=== PATIENT | female | born 1990 | race Caucasian/White ===

== ENCOUNTER → 2020-03-13 | Outpatient (CLI) | payer OTHER ==
[~2020-03-13] MED LIST: ACEBUTCAFT PO; ALBU90OI INH; ANTOXYBENA LEFTEAR; ANTOXYBENA RIGHTEAR; AZIT250 PO; BIRTH CONTROL PILL; ERYT500 PO; Flonase 0.05% N16 GM; IBUP600 PO; IBUP800 PO; MEDR150I IM; NAPR500 PO; NEOPOLHYDS LEFTEAR; ONDA4 PO; PSEU120ER PO; RXCLIN PO
[2020-03-13 20:00] LABS: Hematocrit 38.7 % (33.0-51.0); Hemoglobin 13.1 g/dL (11.5-16.0)
== END ==
LOC: LAB 19:41 → LAB SHORT 19:41
PROVIDERS: Registered Nurse Community Health
DX: Z34.91 Encounter for supervision of normal pregnancy, unspecified, first trimester (principal)
CPT/HCPCS: 82950; 85014; 85018

== ENCOUNTER → 2020-05-16 | Outpatient (CLI) | payer OTHER ==
[~2020-05-16] MED LIST changes: +PRENATAL TABLE1 EAC2 PO; +Percocet 5-3251 EACH PO
== END ==
LOC: LAB SHORT 17:35
DX: Z34.90 Encounter for supervision of normal pregnancy, unspecified, unspecified trimester (principal)
CPT/HCPCS: 87081; 87150

== ENCOUNTER 2020-06-14 19:45 | Inpatient (IN) | payer OTHER ==
[~2020-06-14] VITALS: Ht 154.9 cm; Wt 110.0 kg
[~2020-06-14 19:45] MED LIST changes: -PRENATAL TABLE1 EAC2 PO; -Percocet 5-3251 EACH PO
[2020-06-14 20:19] LABS: BASOPHILS ABSOLUTE AUTO 0.03 K/mm3 (0.00-0.23); BASOPHILS PERCENT AUTO 0 % (0-2); EOSINOPHILS ABSOLUTE AUTO 0.07 K/mm3 (0.00-0.68); EOSINOPHILS PERCENT AUTO 1 % (0-6); Hematocrit 38.6 % (33.0-51.0); Hemoglobin 12.8 g/dL (11.5-16.0); IMMATURE GRAN ABSOLUTE AUTO 0.05 K/mm3 (0.00-0.10); IMMATURE GRAN PERCENT AUTO 0 % (0-1); LYMPHOCYTES ABSOLUTE AUTO 2.74 K/mm3 (0.84-5.20); LYMPHOCYTES PERCENT AUTO 21 % (21-46); MONOCYTES ABSOLUTE AUTO 0.85 K/mm3 (0.16-1.47); MONOCYTES PERCENT AUTO 7 % (4-13); Mean Corpuscular HGB 27.2 pg (26.0-34.0); Mean Corpuscular HGB Conc 33.2 g/dL (31.5-36.5); Mean Corpuscular Volume 82 fL (80-100); Mean Platelet Volume 11.8 fL (9.1-12.4); NEUTROPHILS ABSOLUTE AUTO 9.23 K/mm3 (1.96-9.15); NEUTROPHILS PERCENT AUTO 71 % (41-73); Platelet Count 241 K/mm3 (150-400); RDW Coefficient Variation 13.6 % (11.7-14.2); RDW Standard Deviation 40.6 fL (35.1-46.3); White Blood Cell Count 12.97 K/mm3 (4.00-11.30)
[2020-06-14] MEDS ORDERED: PRENATAL TABLE1 EAC2 PO (20:20)
[2020-06-16 16:36] LABS: pH Cord - Arterial 7.15 (7.28-7.35)
--- NOTE | 2020-06-16 16:36 | NUR ---
06/16/20 1636 Calli Whaley SECTION PERFORMED BY DR. HOLGUIN WITH DR. PERLA ON STANDBY
[2020-06-16 16:37] LABS: PO2 Cord - Arterial < 16 mmHg (16-20)
[2020-06-16 16:40] LABS: PCO2 Cord - Venous 48.8 mmHg (40-50); PO2 Cord - Venous 18.9 mmHg (28-32); pH Umbilical Cord - Venous 7.27 (7.26-7.35)
[2020-06-17 05:50] LABS: Hematocrit 33.7 % (33.0-51.0); Hemoglobin 10.9 g/dL (11.5-16.0); Mean Corpuscular HGB 26.9 pg (26.0-34.0); Mean Corpuscular HGB Conc 32.3 g/dL (31.5-36.5); Mean Corpuscular Volume 83 fL (80-100); Mean Platelet Volume 11.4 fL (9.1-12.4); Platelet Count 183 K/mm3 (150-400); RDW Coefficient Variation 13.8 % (11.7-14.2); RDW Standard Deviation 42.1 fL (35.1-46.3); Red Blood Cell Count 4.05 M/mm3 (3.80-5.20)
[2020-06-18] MEDS ORDERED: IBUP800 PO (09:54)
[2020-06-18] MEDS ORDERED: Percocet 5-3251 EACH PO (09:55)
--- NOTE | 2020-06-18 13:17 | NUR ---
LATE ENTRY PER EMR
--- NOTE | 2020-06-18 13:41 | NUR ---
DISCHARGE MOTHER AND FATHER EDUCATED ON AND RECEIVED PRINTED MATERNAL AND INSTRUCTIONS AND VERBALIZED AN UNDERSTANDING. HARD RX FOR IBUPROFEN + PERCOCET GIVEN TO MOTHER. JUAN DRESSING SUPPLIES GIVEN TO MOM. BREAST FEEDING SUPPLIES + FORMULA GIVEN TO PARENTS. GATHERING PERSONAL BELONGINGS AND WILL ESCORT TO VEHICLE. WILL MATCH MOM AND BABY BANDS.
== END 2020-06-18 14:00 | disposition home or self-care (01) | DRG 788 ==
LOC: OBS 19:45 → BC 19:56
PROVIDERS: Family Medicine; Obstetrics & Gynecology; ADMIT Registered Nurse Community Health
PROC: 10D00Z1 Extraction of Products of Conception, Low, Open Approach (ICD-10-PCS; principal; 2020-06-16 20:00)
DX: O33.4XX0 Maternal care for disproportion of mixed maternal and fetal origin, not applicable or unspecified (principal); O62.1 Secondary uterine inertia; O77.9 Labor and delivery complicated by fetal stress, unspecified; O77.0 Labor and delivery complicated by meconium in amniotic fluid; Z37.0 Single live birth; Z3A.40 40 weeks gestation of pregnancy
CPT/HCPCS: 0241U; 36415; 82803; 85025; 85027; 86850; 86900; 86901; A9270; J0690; J1885; J2370; J2405; J2590; J2765; J3010; J7120

== ENCOUNTER → 2021-01-04 | Outpatient (CLI) | payer OTHER ==
[~2021-01-04] MED LIST changes: +PRENATAL TABLE1 EAC2 PO; +Percocet 5-3251 EACH PO
== END ==
LOC: LAB 09:30 → LAB SHORT 09:30
PROVIDERS: Registered Nurse Community Health
DX: Z01.419 Encounter for gynecological examination (general) (routine) without abnormal findings (principal); Z88.0 Allergy status to penicillin
CPT/HCPCS: G0123

== ENCOUNTER → 2024-08-30 | Outpatient (CLI) | payer OTHER | LOC: LAB SHORT 13:20 → LAB 13:20 | DX: L23.0 Allergic contact dermatitis due to metals (principal); L03.90 Cellulitis, unspecified | CPT/HCPCS: 87070; 87077; 87186; 87205 ==

== ENCOUNTER 2024-09-17 13:19 | Day surgery (SDC) | payer OTHER ==
[~2024-09-17] VITALS: Ht 154.9 cm; Wt 100.5 kg
[~2024-09-17 13:19] MED LIST changes: +Lactated Ringer's 1,000 ML IV ONE
[2024-09-17] MEDS ORDERED: PROAIR DIGIHAL90 MCG (13:42)
[2024-09-17] MEDS ORDERED: propofoL 50 ML IV ONE ×2 (15:17→15:42)
[2024-09-17] MEDS ORDERED: Benzocaine Oral Spray 0.5ML UD ONE (15:18)
[2024-09-17] MEDS ORDERED: Lactated Ringer's 1,000 ML IV ONE (15:22)
[2024-09-17 16:38] VITALS: BP 125/86
== END 2024-09-17 16:25 | disposition home or self-care (01) ==
LOC: ORSCSDS 13:19
PROVIDERS: Specialist
PROC: 0DB58ZX Excision of Esophagus, Via Natural or Artificial Opening Endoscopic, Diagnostic (ICD-10-PCS; principal; 2024-09-17 15:00)
PROC: 0DBE8ZX Excision of Large Intestine, Via Natural or Artificial Opening Endoscopic, Diagnostic (ICD-10-PCS; principal; 2024-09-17 15:00)
PROC: 0DB98ZX Excision of Duodenum, Via Natural or Artificial Opening Endoscopic, Diagnostic (ICD-10-PCS; principal; 2024-09-17 15:00)
PROC: 0DB68ZX Excision of Stomach, Via Natural or Artificial Opening Endoscopic, Diagnostic (ICD-10-PCS; principal; 2024-09-17 15:00)
DX: R10.84 Generalized abdominal pain (principal); R19.4 Change in bowel habit; D50.9 Iron deficiency anemia, unspecified; K64.8 Other hemorrhoids; J45.909 Unspecified asthma, uncomplicated; F41.9 Anxiety disorder, unspecified; E66.01 Morbid (severe) obesity due to excess calories; Z68.41 Body mass index [BMI] 40.0-44.9, adult; Z79.899 Other long term (current) drug therapy
CPT/HCPCS: 88305; 88342; A9270; J2704; J7120

== ENCOUNTER → 2024-09-29 | Outpatient (CLI) | payer OTHER ==
[~2024-09-29] MED LIST changes: -Lactated Ringer's 1,000 ML IV ONE; +PROAIR DIGIHAL90 MCG
[2024-10-01 16:44] LABS: CALPROTECTIN,FECAL 24 ug/g (<=49)
== END ==
LOC: LAB 06:20 → LAB SHORT 06:20
PROVIDERS: Physician Assistant Medical
DX: R10.84 Generalized abdominal pain (principal); D50.9 Iron deficiency anemia, unspecified
CPT/HCPCS: 83993